=== PATIENT | female | born 1990 | race Caucasian/White ===

== ENCOUNTER 2017-06-03 10:55 | Emergency (ER) | payer OTHER, SELFPAY ==
[2017-06-03 10:57] VITALS: BP 132/83; PULSE 97; RESP 17; TEMP 37.3; O2SAT 99; BMI 31.8
[2017-06-03 11:32] LABS: Mucous, Urine 0 SEEN /hpf (<or=2+)
[2017-06-03 11:35] VITALS: BP 115/61; BP 119/54; BP 125/70; PULSE 72; PULSE 92; PULSE 98
[2017-06-03 11:35] LABS: Color, Urine Yellow (Yellow); Glucose, Dipstick Normal (Normal); Ketone-Dipstick Negative (Negative); Leukocyte Esterase-Dipstick 25 /ul (Negative); Nitrite-Dipstick Negative (Negative); Occult Blood-Urine 10 /ul (Negative); Protein-Dipstick 100 mg/dl (Negative); Urine Bilirubin Dipstick Negative (Negative); Urine Clarity Clear (Clear); Urine Urobilinogen Normal (Normal); Urine pH 6.5 (5.0 - 8.0)
[2017-06-03 11:45] LABS: Red Blood Cells-Urine 0-5 SEEN /hpf (0-5); Squamous Epithelial Cells - UA 0-5 SEEN /hpf (5-10); White Blood Cells 5-10 SEEN /hpf (0-5)
[2017-06-03 11:47] LABS: Bacteria 3+ /hpf (None Seen)
--- NOTE | 2017-06-03 12:13 | ED.DCSUM_ITS ---
- ER Visit Summary Date of Service: 06/03/17 Chief Complaint: [Anxiety] History of Present Illness: The patient is a 27 F [presents to the emergency department with which she thinks may have been an anxiety attack this morning. Patient states that she was sitting and getting ready for work when she started to feel like she was in a tight space and had a little bit of blurred vision that lasted less than a minute. Patient states that she is 31 weeks with her first . Patient is still feeling the baby move normally. Patient denies any urinary symptoms. She denies recent illness. Her symptoms have resolved but her mom convinced her to come in and get evaluated because of the blurred vision. Vision has had some similar episodes in the past but really does not take any anxiety medication. Denies any chest pain or shortness of breath at this time.] Physical Examination: [HEENT-PERRLA, EOMI. Cranial nerves II through XII grossly intact. TMs clear. Mucous membranes moist. No adenopathy. Cardiovascular-regular rate and rhythm without murmur or ectopy Lungs-clear to auscultation, chest wall stable without crepitus or subcu emphysema Abdomen-normoactive bowel sounds, soft, nontender, no rebound or rigidity, no peritoneal signs. Extremities-intact ?4, normal range of motion, normal pulses, atraumatic] Test Results: [Urinalysis obtained showed 25 leukocyte esterase 5-10 WBCs and + 3 bacteria. Orthostatic vital signs were negative. heart tones were 145. 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 It may contain incorrect words, spelling, and punctuation that were not noted in review of the chart prior to signing ED Disposition - Plan for ED Patient: Chief Complaint: Anxiety Referrals: Yadiel Vasques III, MD [Primary Care Provider] -
--- NOTE | 2017-06-03 12:14 | ED.DEP ---
ED Disposition - Plan for ED Patient: Chief Complaint: Anxiety Instructions: ED Panic Attack, ED UTI Cystitis Female Prescriptions: Nitrofurantoin Macrocrystals [Macrobid] 100 mg PO Q12 #13 cap Referrals: Emilee Floyd [STAFF PHYSICIAN] - 3-5 Days
[2017-06-03 12:29] VITALS: PULSE 75; RESP 16; O2SAT 96
[2017-06-03] MEDS: Nitrofurantoin Macrocrystals 100 MG Capsule PO (12:30)
== END 2017-06-03 12:32 | disposition home or self-care (01) ==
PROVIDERS: Emergency Provider Emergency Medicine; Family Provider Family Medicine; PCP Family Medicine
DX: O99.343 Other mental disorders complicating pregnancy, third trimester (principal); F41.9 Anxiety disorder, unspecified; O23.43 Unspecified infection of urinary tract in pregnancy, third trimester; B96.89 Other specified bacterial agents as the cause of diseases classified elsewhere; Z3A.31 31 weeks gestation of pregnancy
CPT/HCPCS: 81001; 87086; 87088; 99283

== ENCOUNTER 2017-07-15 10:58 | Outpatient (CLI) | payer OTHER, SELFPAY ==
[2017-07-15 11:03] VITALS: BMI 33.5
[2017-07-15 11:51] LABS: Protein, Urine (Random) 48.9 mg/dL (<11.9); Protein:Creat Ratio 385 mg/g CRE (0-200)
[2017-07-15 12:04] LABS: Hematocrit 39.3 % (37-47); Hemoglobin 12.8 g/dl (12.0-15.0); Mean Corp Hgb Conc 32.6 g/gl (32-36); Mean Corpuscular Hgb 27.9 pg (27.0-32.0); Mean Corpuscular Volume 85.6 fL (81-99); Platelet Count 284 K/mm3 (150-450); RBC Distribution Width SD 46.1 fl (35.1-43.9); Red Blood Count 4.59 M/mm3 (4.2-5.4); Scan Indicated on CBC? Y/N NO; White Blood Count 12.2 K/mm3 (4.4-11.0)
[2017-07-15 12:19] LABS: AST(SGOT) 17 U/L (15-37); Alanine Aminotransfer ALT/SGPT 18 U/L (13-56); Creatinine, Serum 0.48 mg/dL (0.55-1.02); EST Glomerular Filtration Rate 168 mL/min (>60); Est Glom Filt Rate - Afr Amer 204 mL/min (>60); Estimated Creatinine Clearance 148.21 ml/min; Uric Acid 4.4 mg/dL (2.6-6.0)
[2017-07-15 12:57] LABS: Prothrombin Time (Protime)PT. 13.1 SECONDS (11.7-14.9)
[2017-07-15 12:58] LABS: Partial Thromboplast Time 28.1 Seconds (24.1-36.2)
--- NOTE | 2017-07-15 13:31 | OB.TRI.NOTE ---
History of Present Illness Date of Service: 07/15/17 Was patient seen by the physician?: No Reason For Visit: R/O PIH Home Medications Medication Instructions Recorded Pnv No.122/Iron/Folic Acid 1 each PO DAILY 06/03/17 [ Multi Tablet] Allergies azithromycin Allergy (Verified 06/03/17 10:57) Hives Penicillins Allergy (Verified 06/03/17 10:57) Hives Sulfa (Sulfonamide Antibiotics) Allergy (Verified 06/03/17 10:57) Hives NST - FHR Rate Baby A Baseline: 135 Variability:: Moderate Accelerations:: 15 x 15 Decelerations:: Variable NST Reactive:: Yes Uterine Activity:: irritability Impression/Plan Reactive NST for elevated BP in BP's & labs normal except for mildly elevated urine protein. No evidence preeclampsia
== END 2017-07-15 13:30 | disposition home or self-care (01) ==
LOC: WPOUT 11:01 → WP 11:01
PROVIDERS: Family Provider Family Medicine; PCP Family Medicine; Visit Provider Obstetrics & Gynecology
DX: O13.9 Gestational [pregnancy-induced] hypertension without significant proteinuria, unspecified trimester (principal); Z3A.00 Weeks of gestation of pregnancy not specified
CPT/HCPCS: 36415; 59025; 59050; 82565; 82570; 84156; 84450; 84460; 84550; 85027; 85610; 85730; 99218; G0378

== ENCOUNTER 2017-07-19 16:50 | Inpatient (IN) | payer OTHER, SELFPAY ==
--- NOTE | 2017-07-19 17:25 | PCM.HP.OB ---
- Problem List (1) Gestational hypertension Status: Acute (2) GBS bacteriuria Status: Acute (3) Anxiety Status: Acute (4) Status: Acute History Date of Admission: 07/19/17 Final DENISE: 08/05/17 Final DENISE Source: LMP Gestational age: 37 Weeks and 4 Days History of this : 27 year old female at 37w4d by LMP, confirmed by 1st trimester U/S. Presented to office today for routine PN visit. BP in office elevated in office and decision made for IOL due to Gestational HTN. Patient denied any headache, scotoma, chest pain, shortness of breath, or RUQ pain. Allergies azithromycin Allergy (Verified 06/03/17 10:57) Hives Penicillins Allergy (Verified 06/03/17 10:57) Hives Sulfa (Sulfonamide Antibiotics) Allergy (Verified 06/03/17 10:57) Hives Smoking Status: Never smoker Alcohol: None Drug Use: none Number of Fetus(es): 1 Review of Systems Constitutional: Denies: Chills, Fever, Weight Change Eyes: Denies: Blurred vision, Vision Change HEENT: Denies: Head Aches Cardiovascular: Denies: Chest Pain, Palpitations Respiratory: Denies: Cough, Shortness of breath at rest, Sputum production Gastrointestinal: Denies: Abdominal Pain, Nausea, Vomiting Physical Exam Vitals: Labs: RPR negative HIV negative GBS positive in urine Rubella immune HBsAG negative GC/CT negative A positive, antibody screen negative. General: Alert Cardiovascular: Regular rate, Regular Rhythm, No murmurs Lungs: Clear to auscultation Abdomen: Bowel Sounds Present, Gravid Extremities:: No edema, Deep tendon reflexes - +2/4 bilateral patellar. Clonus negative bilaterally Presentation: Cephalic Cervix Dilation (cm): 0 - Per Marleni Young exam in office today Station: -3 Effacement (%): 30 Assessment/Plan Active and Suspected Problems Gestational hypertension (Acute) GBS bacteriuria (Acute) Anxiety (Acute) (Acute) A: 27 year old at 37w4d for induction of labor Gestational Hypertension P: 1) Admit to L&D for routine orders. Planning epidural for pain management. 2) Cytotec cervical ripening and then progress to Pitocin if needed per protocol 3) BP stable upon admission. Will initiate HTN protocol if needed. 4) GBS positive, penicillin allergic with Hives. Will do Vancomycin for GBS prophylaxis. To start once patient is in active labor. 5) collaborative physician and consulted on patient plan of care. Gem Monsalve CNM
[2017-07-19 17:38] VITALS: BMI 33.3
[2017-07-19 18:27] LABS: Hematocrit 40.3 % (37-47); Hemoglobin 13.1 g/dl (12.0-15.0); Mean Corp Hgb Conc 32.5 g/gl (32-36); Mean Corpuscular Hgb 27.8 pg (27.0-32.0); Mean Corpuscular Volume 85.4 fL (81-99); Platelet Count 295 K/mm3 (150-450); RBC Distribution Width CV 14.7 % (11.6-14.6); RBC Distribution Width SD 45.8 fl (35.1-43.9); Red Blood Count 4.72 M/mm3 (4.2-5.4); White Blood Count 14.5 K/mm3 (4.4-11.0)
[2017-07-19 18:46] LABS: AST(SGOT) 14 U/L (15-37); Alanine Aminotransfer ALT/SGPT 16 U/L (13-56); Creatinine, Serum 0.54 mg/dL (0.55-1.02); EST Glomerular Filtration Rate 147 mL/min (>60); Est Glom Filt Rate - Afr Amer 178 mL/min (>60); Estimated Creatinine Clearance 131.74 ml/min; Uric Acid 4.1 mg/dL (2.6-6.0)
[2017-07-19 18:49] LABS: Prothrombin Time (Protime)PT. 13.5 SECONDS (11.7-14.9)
[2017-07-19 18:50] LABS: Partial Thromboplast Time 30.4 Seconds (24.1-36.2)
[2017-07-19 18:56] LABS: Scan Indicated on CBC? Y/N NO
[2017-07-19] MEDS: miSOPROStol 25 MCG TABLET VAGINAL ×2 (19:53→23:45)
[2017-07-19 20:18] LABS: Protein, Urine (Random) 28.4 mg/dL (<11.9); Protein:Creat Ratio 243 mg/g CRE (0-200)
[2017-07-19] MEDS: Acetaminophen 325 MG Tablet PO (23:07)
[2017-07-19] MEDS: 0.9% Saline Lock 10 ML Syringe IV (23:08)
[2017-07-20] MEDS: miSOPROStol 25 MCG TABLET VAGINAL (04:01)
--- NOTE | 2017-07-20 08:15 | PCM.PN.OB ---
Patient Problems: Active and Suspected Problems Gestational hypertension (Acute) GBS bacteriuria (Acute) Anxiety (Acute) (Acute) Subjective: Resting up in chair. Slept throughout the night. Some back pain during contractions. 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 RBC Cancelled 4.72 Hgb Cancelled 13.1 Hct Cancelled 40.3 MCV Cancelled 85.4 MCH Cancelled 27.8 MCHC Cancelled 32.5 RDW Cancelled 14.7 H RDW Differential Cancelled 45.8 H Plt Count Cancelled 295 MPV Cancelled 12.0 Diff Path Review Cancelled STREET CLEANING EQUIPMENT OPERATOR PT INR APTT Creatinine Estim Creat Clear Calc Est GFR (MDRD) Af Amer Est GFR (MDRD) Non-Af Uric Acid AST ALT U Random Total Protein Urine Creatinine Protein/Creatinin Ratio Blood Type A POSITIVE Antibody Screen NEGATIVE 07/19/17 07/19/17 07/19/17 17:50 17:50 19:50 WBC Corrected WBC RBC Hgb Hct MCV MCH MCHC RDW RDW Differential Plt Count MPV Diff Path Review PT 13.5 INR 1.0 APTT 30.4 Creatinine 0.54 L Estim Creat Clear Calc 131.74 Est GFR (MDRD) Af Amer 178 Est GFR (MDRD) Non-Af 147 Uric Acid 4.1 AST 14 L ALT 16 U Random Total Protein 28.4 H Urine Creatinine 117.00 Protein/Creatinin Ratio 243 H Blood Type Antibody Screen Medical Necessity - Tobacco Use Smoking Status: Never smoker Assessment/Plan Active and Suspected Problems Gestational hypertension (Acute) GBS bacteriuria (Acute) Anxiety (Acute) (Acute) A: Induction of Labor, cervical ripening Category 1 FHT P: 1) Continue with Cytotec cervical ripening. Anticipate starting Pitocin once cervical change 2) To eat breakfast and get shower then insert next dose of Cytotec 3) notified at this time.
--- NOTE | 2017-07-20 08:19 | PN.OBGYN_ITS ---
Patient Problems: Active and Suspected Problems Gestational hypertension (Acute) GBS bacteriuria (Acute) Anxiety (Acute) (Acute) Subjective: Resting up in chair. Slept throughout the night. Some back pain during contractions. 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 RBC Cancelled 4.72 Hgb Cancelled 13.1 Hct Cancelled 40.3 MCV Cancelled 85.4 MCH Cancelled 27.8 MCHC Cancelled 32.5 RDW Cancelled 14.7 H RDW Differential Cancelled 45.8 H Plt Count Cancelled 295 MPV Cancelled 12.0 Diff Path Review Cancelled SWITCHBOARD OPERATOR ASSISTANT PT INR APTT Creatinine Estim Creat Clear Calc Est GFR (MDRD) Af Amer Est GFR (MDRD) Non-Af Uric Acid AST ALT U Random Total Protein Urine Creatinine Protein/Creatinin Ratio Blood Type A POSITIVE Antibody Screen NEGATIVE 07/19/17 07/19/17 07/19/17 17:50 17:50 19:50 WBC Corrected WBC RBC Hgb Hct MCV MCH MCHC RDW RDW Differential Plt Count MPV Diff Path Review PT 13.5 INR 1.0 APTT 30.4 Creatinine 0.54 L Estim Creat Clear Calc 131.74 Est GFR (MDRD) Af Amer 178 Est GFR (MDRD) Non-Af 147 Uric Acid 4.1 AST 14 L ALT 16 U Random Total Protein 28.4 H Urine Creatinine 117.00 Protein/Creatinin Ratio 243 H Blood Type Antibody Screen Medical Necessity - Tobacco Use Smoking Status: Never smoker Assessment/Plan Active and Suspected Problems Gestational hypertension (Acute) GBS bacteriuria (Acute) Anxiety (Acute) (Acute) A: Induction of Labor, cervical ripening Category 1 FHT P: 1) Continue with Cytotec cervical ripening. Anticipate starting Pitocin once cervical change 2) To eat breakfast and get shower then insert next dose of Cytotec 3) notified at this time.
--- NOTE | 2017-07-20 09:04 | PCM.PN.BLA ---
Progress Note Denies VILLALOBOS, visual changes or epigastric pain. FHTs category 1. BP stable cervix .5/50/-3, medium consistency, posterior Swift placed over stylette in usual sterile fashion and inflated to 30 cc. Placement over internal os confirmed Initiate pitocin
[2017-07-20] MEDS: 0.9% Saline Lock 10 ML Syringe IV (09:23)
[2017-07-20] MEDS: Lactated Ringers 1,000 ML 50 ML IV ×4 (09:24→23:38)
[2017-07-20] MEDS: Oxytocin 30 units/NS 500 ml 30 UNITS/500 ML IV.SOLN IV (10:05)
[2017-07-20] MEDS: fentaNYL-bupivacaine (epidural) 100 ML BAG EPIDURAL ×2 (14:07→18:18)
--- NOTE | 2017-07-20 16:35 | PCM.PN.BLA ---
Progress Note PAtient comfortable wit epidural AROM clear fluid & IUPC placed cvx - 4/80/-3 fhts 135 with mod variability, accels, occ variables tocos Q3 min A&P: cont pit induction
--- NOTE | 2017-07-20 23:27 | PCM.PN.BLA ---
Progress Note Patient feeling some rectal pressure cvx 5/90/-1 fhts 140 with mod variability, accels, occ late decel - overall reassuring tocos Q1-3 minutes A&P: continue pitocin induction FSE placed on maternal cervix was easily removed. The other FSE was confirmed to be correctly placed on the head.
[2017-07-20] MEDS: Ondansetron 4 MG/2 ML Vial IV (23:37)
[2017-07-21] MEDS: Lactated Ringers 1,000 ML 50 ML IV (05:36)
[2017-07-21] MEDS: fentaNYL-bupivacaine (epidural) 100 ML BAG EPIDURAL (05:37)
--- NOTE | 2017-07-21 06:59 | PCM.OB.VAG ---
Vaginal Delivery Maternal Presentation: Medically Indicated Induction Method of Induction: Pitocin, Swift Bulb, Amniotomy, Cytotec Medical Reason for Induction: Gestational Hypertension Amniotic Membrane Rupture Type: Artificial Amniotic Fluid Description: Clear Final DENISE: 08/05/17 Gestational age: 37 Weeks and 6 Days Date of Procedure: 07/21/17 Pre-Operative Diagnosis: Gestational hypertension Post-Operative Diagnosis: Gestational hypertension Surgery/ Procedure Performed: Spontaneous Vaginal Delivery Type of Anesthesia: Epidural Description of Procedure: Patient prepped & draped when +3 with pushing. Patient was exhausted & decreased fhts noted thus ritgen maneuver used to aid in delivery of the head. After the head delivered the shoulders spontaneously followed. Body delivered with the next push. Infant placed on maternal abdomen where 3vc clamped & cut. RN present & took websphere commerce developer to warmer and websphere commerce developer called. Placenta delivered with gentle traction. Good uterine tone obtained. Presentation: Vertex - direct OA Placental Delivery Description: Expressed Placenta Disposition: [facility] Cord Vessel Description: 3 Vessels Cord Gases drawn per routine: ABG, VBG Cord Entanglement: Around neck x 1, loose Drain: Swift to straight drain Estimated Blood Loss: 300ml A gender: Male (1 minute): 3 (5 minute): 9 Episiotomy Description: None Laceration: None Medications given after delivery: IV Pitocin Complications: None
[2017-07-21] MEDS: Oxytocin 30 units/NS 500 ml 30 UNITS/500 ML IV.SOLN 334 UNITS IV (08:00)
[2017-07-21] MEDS: Oxytocin 30 units/NS 500 ml 30 UNITS/500 ML IV.SOLN 167 UNITS IV (08:30)
[2017-07-21] MEDS: Ibuprofen 600 MG Tablet PO (10:39)
--- NOTE | 2017-07-21 11:19 | NURSING ---
1100 pt up to void gait steady
[2017-07-21 12:00] VITALS: BP 119/59; PULSE 78; RESP 16; TEMP 37.1; O2SAT 98
[2017-07-21 15:30] VITALS: BP 134/78; PULSE 74; RESP 16; TEMP 36.9; O2SAT 99
[2017-07-21 20:25] VITALS: BP 130/86; PULSE 97; RESP 18; TEMP 36.7; O2SAT 99
[2017-07-21 23:25] VITALS: BP 136/81; PULSE 74; RESP 17; TEMP 36.6; O2SAT 98
[2017-07-22 04:00] VITALS: PULSE 77; RESP 16; TEMP 37.1
[2017-07-22 08:30] VITALS: BP 134/74; PULSE 89; RESP 16; TEMP 37.1
--- NOTE | 2017-07-22 08:55 | PCM.PN.OB ---
Patient Problems: Active and Suspected Problems Gestational hypertension (Acute) GBS bacteriuria (Acute) Anxiety (Acute) (Acute) Subjective: No complaints - Physical Exam General: Alert, Oriented x3 Abdomen: Soft, Non Tender, Non-Distended - ff mid & below umb Extremities: No Calf Tenderness Vital Signs Temp Pulse Resp BP Pulse Ox 98.7 F 77 16 136/81 H 98 07/22/17 04:00 07/22/17 04:00 07/22/17 04:00 07/21/17 23:25 07/21/17 23:25 Oxygen Delivery Method Room Air Weight: 188 lb Body Mass Index (BMI) 33.3 Intake and Output for Last 24 Hours 07/20/17 07/21/17 07/22/17 23:59 23:59 23:59 Intake Total 1800 / 1800 350 / 350 Output Total 150 / 150 600 / 600 Balance 1650 / 1650 -250 / -250 Medical Necessity - Tobacco Use Smoking Status: Never smoker Assessment/Plan Active and Suspected Problems Gestational hypertension (Acute) GBS bacteriuria (Acute) Anxiety (Acute) (Acute) PPD#1 ROutine care Gestational hypertension - BP's normal
[2017-07-22 12:00] VITALS: BP 137/80; PULSE 80; RESP 18; TEMP 36.2
[2017-07-22] MEDS: Ibuprofen 600 MG Tablet PO (12:24)
[2017-07-22 16:00] VITALS: BP 133/89; PULSE 82; RESP 18; TEMP 37.2
[2017-07-22 20:15] VITALS: BP 133/77; PULSE 76; RESP 18; TEMP 36.6
[2017-07-23] VITALS (10 sets, daily range): BP systolic 124–155; BP diastolic 77–93; PULSE 72–83; RESP 16–18; TEMP 36.4–36.9; O2SAT 97–99
--- NOTE | 2017-07-23 05:34 | NURSING ---
bp checked while pt lying down after sleeping 155/89 wich is up over last bp denies any pain, denies seeing spots, and blurred vision.
--- NOTE | 2017-07-23 08:34 | PCM.PN.OB ---
Patient Problems: Active and Suspected Problems Gestational hypertension (Acute) GBS bacteriuria (Acute) Anxiety (Acute) (Acute) Subjective: NO headache or blurry vision - Physical Exam General: Alert, Oriented x3 Abdomen: Soft, Non Tender, Non-Distended - ff mid & below umb Extremities: No Calf Tenderness - 2+ edema bilaterally Vital Signs Temp Pulse Resp BP Pulse Ox 97.6 F L 80 18 143/91 H 99 07/23/17 07:45 07/23/17 07:45 07/23/17 07:45 07/23/17 07:45 07/23/17 07:45 Oxygen Delivery Method Room Air Weight: 188 lb Body Mass Index (BMI) 33.3 Intake and Output for Last 24 Hours 07/21/17 07/22/17 07/23/17 23:59 23:59 23:59 Intake Total 350 / 350 Output Total 600 / 600 Balance -250 / -250 Medical Necessity - Tobacco Use Smoking Status: Never smoker Assessment/Plan Active and Suspected Problems Gestational hypertension (Acute) GBS bacteriuria (Acute) Anxiety (Acute) (Acute) PPD#2 Gestational hypertension - BP's increasing. Will give lasix as patient with edema & some increased fluid. Start labetalol 200mg bid. Check repeat preeclampsia labs. Routine care
[2017-07-23] MEDS: Labetalol 200 MG Tablet PO (09:38)
[2017-07-23] MEDS: Furosemide 20 MG Tablet PO (09:38)
--- NOTE | 2017-07-23 09:46 | NURSING ---
Pt and instructed on signs and symptoms to look for at home relating to elevated blood pressure. Both verbalizing understanding. Pre-eclampsia handout given and pt denies questions.
[2017-07-23 09:50] LABS: Hematocrit 38.2 % (37-47); Hemoglobin 12.4 g/dl (12.0-15.0); Mean Corp Hgb Conc 32.5 g/gl (32-36); Mean Corpuscular Hgb 27.9 pg (27.0-32.0); Mean Platelet Vol. 11.7 fl (6.2-12.0); Platelet Count 295 K/mm3 (150-450); RBC Distribution Width CV 15.1 % (11.6-14.6); RBC Distribution Width SD 47.3 fl (35.1-43.9); Red Blood Count 4.44 M/mm3 (4.2-5.4); Scan Indicated on CBC? Y/N NO; White Blood Count 16.2 K/mm3 (4.4-11.0)
[2017-07-23 09:58] LABS: Partial Thromboplast Time 28.5 Seconds (24.1-36.2); Prothrombin Time (Protime)PT. 12.7 SECONDS (11.7-14.9)
[2017-07-23 10:00] LABS: AST(SGOT) 22 U/L (15-37); Alanine Aminotransfer ALT/SGPT 22 U/L (13-56); Creatinine, Serum 0.67 mg/dL (0.55-1.02); EST Glomerular Filtration Rate 114 mL/min (>60); Est Glom Filt Rate - Afr Amer 138 mL/min (>60); Estimated Creatinine Clearance 106.18 ml/min; Uric Acid 5.2 mg/dL (2.6-6.0)
--- NOTE | 2017-07-23 15:48 | PCM.PN.BLA ---
Progress Note S: Patient denies complaints O: AF, BP's reviewed DTRs 2+ A&P: PPD#2 with gestational hypertension BP's still mildly elevated. Will increase labetalol to 300mg tid. Repeat labs normal today. Observe patient overnight due to elevated blood pressures.
[2017-07-23] MEDS: Labetalol 200 MG Tablet 300 MG PO ×2 (16:43→22:03)
[2017-07-23] MEDS: Senna/Docusate Sodium 1 Tablet PO (22:04)
[2017-07-24 04:00] VITALS: BP 145/86; PULSE 77; RESP 18; TEMP 36.8
[2017-07-24] MEDS: Labetalol 200 MG Tablet 300 MG PO (06:23)
--- NOTE | 2017-07-24 08:29 | PCM.DCVAG ---
Discharge Diet: No Restrictions Discharge Activity: May Not Drive, May Shower May resume sexual activity in: 4-6 weeks Weight Bearing Status: Weight bearing as tolerated Instructions: What Is High Blood Pressure?, Discharge Instructions for High Blood Pressure (Hypertension) Additional Instructions: If you experience any of the following, contact your healthcare provider. Bleeding that soaks a pad every hour for 2 hours Fever 100.4 or higher Unrelieved incision or abdominal pain Swelling, redness, discharge or bleeding from your incision or episiotomy site Your incision begins to separate Problems urinating (including inability to urinate or burning while urinating). Visual changes Severe headache Flu-like symptoms Pain or redness in one of both of your breasts Pain, warmth, tenderness or swelling in your legs, especially the calf area Frequent nausea and vomiting Symptoms of depression or anxiety If you experience any of the following, call 911 or go to the nearest Emergency Room. Chest pain Problems breathing Seizure activity Partial or complete paralysis of a body part, slurred speech, weakness or drooping of the face, or a sudden inability to walk or hold your balance FOLLOW UP WEDNESDAY FOR A BLOOD PRESSURE CHECK. Allergies/Adverse Reactions: Allergies azithromycin Allergy (Verified 06/03/17 10:57) Hives Penicillins Allergy (Verified 06/03/17 10:57) Hives Sulfa (Sulfonamide Antibiotics) Allergy (Verified 06/03/17 10:57) Hives Medications to take at Discharge Pnv No.122/Iron/Folic Acid [ Multi Tablet] 1 each PO DAILY 06/03/17 Labetalol [Trandate (Beta [place])] 300 mg PO TID #90 tab 07/24/17 The following prescriptions were given: Labetalol [Trandate (Beta [place])] 300 mg PO TID #90 tab Primary Care Physician: Yadiel Vasques III, MD [Primary Care Provider] -
--- NOTE | 2017-07-24 08:30 | DCINST_ITS ---
Discharge Diet: No Restrictions Discharge Activity: May Not Drive, May Shower May resume sexual activity in: 4-6 weeks Weight Bearing Status: Weight bearing as tolerated Instructions: What Is High Blood Pressure?, Discharge Instructions for High Blood Pressure (Hypertension) Additional Instructions: If you experience any of the following, contact your healthcare provider. * Bleeding that soaks a pad every hour for 2 hours * Fever 100.4 or higher * Unrelieved incision or abdominal pain * Swelling, redness, discharge or bleeding from your incision or episiotomy site * Your incision begins to separate * Problems urinating (including inability to urinate or burning while urinating) . * Visual changes * Severe headache * Flu-like symptoms * Pain or redness in one of both of your breasts * Pain, warmth, tenderness or swelling in your legs, especially the calf area * Frequent nausea and vomiting * Symptoms of depression or anxiety If you experience any of the following, call 911 or go to the nearest Emergency Room. * Chest pain * Problems breathing * Seizure activity * Partial or complete paralysis of a body part, slurred speech, weakness or drooping of the face, or a sudden inability to walk or hold your balance * * * * * * FOLLOW UP WEDNESDAY FOR A BLOOD PRESSURE CHECK. Allergies/Adverse Reactions: Allergies azithromycin Allergy (Verified 06/03/17 10:57) Hives Penicillins Allergy (Verified 06/03/17 10:57) Hives Sulfa (Sulfonamide Antibiotics) Allergy (Verified 06/03/17 10:57) Hives Medications to take at Discharge Pnv No.122/Iron/Folic Acid [ Multi Tablet] 1 each PO DAILY 06/03/17 Labetalol [Trandate (Beta [place])] 300 mg PO TID #90 tab 07/24/17 The following prescriptions were given: Labetalol [Trandate (Beta [place])] 300 mg PO TID #90 tab Primary Care Physician: Yadiel Vasques III, MD [Primary Care Provider] -
--- NOTE | 2017-07-24 08:31 | PCM.PN.OB ---
Patient Problems: Active and Suspected Problems Gestational hypertension (Acute) GBS bacteriuria (Acute) Anxiety (Acute) (Acute) Subjective: Denies complaints. No headache or blurry vision. - Physical Exam General: Alert, Oriented x3 Abdomen: Soft, Non Tender, Non-Distended - ff mid & below umb Extremities: No Calf Tenderness - 1+ edema bilaterally Vital Signs Temp Pulse Resp BP Pulse Ox 98.2 F 77 18 145/86 H 97 07/24/17 04:00 07/24/17 04:00 07/24/17 04:00 07/24/17 04:00 07/23/17 20:04 Oxygen Delivery Method Room Air Weight: 188 lb Body Mass Index (BMI) 33.3 Laboratory Tests Past 24 Hrs 07/23/17 07/23/17 07/23/17 09:40 09:40 09:40 WBC 16.2 H RBC 4.44 Hgb 12.4 Hct 38.2 MCV 86.0 MCH 27.9 MCHC 32.5 RDW 15.1 H RDW Differential 47.3 H Plt Count 295 MPV 11.7 PT 12.7 INR 1.0 APTT 28.5 Creatinine 0.67 Estim Creat Clear Calc 106.18 Est GFR (MDRD) Af Amer 138 Est GFR (MDRD) Non-Af 114 Uric Acid 5.2 AST 22 ALT 22 Medical Necessity - Tobacco Use Smoking Status: Never smoker Assessment/Plan Active and Suspected Problems Gestational hypertension (Acute) GBS bacteriuria (Acute) Anxiety (Acute) (Acute) PPD#3 Gestational hypertension - BP's normal to systolic mildly elevated, continue labetalol. reviewed signs preE with patient & her extensively. Call with any concerns. F/u Wednesday in office D/c home
[2017-07-24 10:00] VITALS: BP 143/87; PULSE 72; RESP 16; TEMP 37.2
--- NOTE | 2017-07-24 12:23 | NURSING ---
1135 Patient states she is ready to go home and wants to leave [facility]. States she is able to care for herself and her baby. Discharged to home in wheelchair with infant to car.
== END 2017-07-24 11:35 | disposition home or self-care (01) | DRG 775 ==
PROVIDERS: Obstetrics & Gynecology; Admitting Provider Obstetrics & Gynecology; Family Provider Family Medicine; PCP Family Medicine; Visit Provider Obstetrics & Gynecology
DX: O13.3 Gestational [pregnancy-induced] hypertension without significant proteinuria, third trimester (principal); O69.81X0 Labor and delivery complicated by cord around neck, without compression, not applicable or unspecified; O99.820 Streptococcus B carrier state complicating pregnancy; O99.343 Other mental disorders complicating pregnancy, third trimester; F41.9 Anxiety disorder, unspecified; Z3A.37 37 weeks gestation of pregnancy; Z37.0 Single live birth
CPT/HCPCS: 59025; 59050; 82565; 82570; 84156; 84450; 84460; 84550; 85027; 85610; 85730; 86850; 86900; 99218; J7050; J7120; A4216; G0378; J2405

== ENCOUNTER 2021-01-23 21:04 | Emergency (ER) | payer OTHER, SELFPAY ==
[2021-01-23 21:04] VITALS: BP 184/109; PULSE 85; RESP 16; TEMP 36.6; O2SAT 97; BMI 33.8
--- NOTE | 2021-01-23 21:22 | EKG12_ITS ---
Test Reason : HTN Blood Pressure : / mmHG Vent. Rate : 082 BPM Atrial Rate : 082 BPM P-R Int : 140 ms QRS Dur : 082 ms QT Int : 370 ms P-R-T Axes : 030 031 013 degrees QTc Int : 432 ms Normal sinus rhythm Normal ECG Confirmed by LUCIAN ROMANO, MARQUISE ([id number]), production editor HUYEN DOVER ([id number]) on 01/28/2021 8:41:52 AM Referred By: CARLOS Confirmed By:MARQUISE EPSTEIN MD
--- NOTE | 2021-01-23 21:23 | EDS_ITS ---
HPI History of Present Illness Chief Complaint: Hypertension Onset/Context/Timing Onset: Today (most of the day) Timing: Continuous Quality - All: constant and pressure Location: midchest w/o radiation Current Severity: Moderate Maximum Severity: Moderate Worsened by: nothing. nonpleuritic, nonexertional. Relieved by: nothing Associated Symptoms Associated Symptoms: anxiety Narrative Narrative: Patient has been having chest pain off and on, it has been there most of the day today, out of concern of this she checked her blood pressure and it was in the 140s which is why she became concerned. Her diastolic was 101. Here her pressure is much higher than this. Recent Illness/Hospitalization: No PFSH PFSH Medical History Hypertension Home Medications [id number] [ Multi] 1 ea PO DAILY 06/03/17 [History Last Taken 07/19/17 10:30] labetalol 300 mg PO TID #90 tab 07/24/17 [Rx Last Taken Unknown] hydroxyzine pamoate 50 mg PO TID PRN PRN #20 capsule 01/23/21 [Rx Last Taken Unknown] Allergy/AdvReac Type Severity Reaction Status Date / Time azithromycin Allergy Hives Verified 01/23/21 21:06 Penicillins Allergy Hives Verified 01/23/21 21:06 Sulfa (Sulfonamide Allergy Hives Verified 01/23/21 21:06 Antibiotics) Social History (Updated 01/23/21 @ 21:[address] Roderick Melgoza MD) Smoking Status: Never smoker substance use type: does not use ROS ROS ED Constitutional Constitutional ED: Denies chills or fever(s) Eyes Eyes: Denies change in vision or diplopia ENT ENT ED: Denies rhinorrhea or sore throat Cardiovascular Cardiovascular: Reports chest pain and other Details: No arm, back, jaw, neck pain ; Denies palpitations Respiratory/Chest Respiratory/Chest: Denies cough or dyspnea Gastrointestinal Gastrointestinal: Denies abdominal pain, diarrhea, nausea or vomiting Genitourinary Genitourinary ED: Denies dysuria or hematuria Musculoskeletal Musculoskeletal: Denies back pain or neck pain Integumentary Denies abscess or rash Neurologic Neurologic: Denies headache(s), paresthesias or weakness Psychiatric Psychiatric: Reports anxiety; Denies suicidal thoughts EXAM Physical Exam Const Vital Signs: 01/23/21 21:04 01/23/21 21:38 01/23/21 21:55 Temperature 97.9 F Temperature Source Temporal Pulse Rate 85 Respiratory Rate 16 Respiratory Effort Normal Non-Labored Respiratory Pattern Normal Blood Pressure 184/109 H Blood Pressure Mean 134 Pulse Ox 97 98 Oxygen Delivery Method Room Air Room Air Positive well nourished and well developed General Appearance ED: well developed and NAD HEENT Reports moist mucous membranes normocephalic and atraumatic Eyes PERRL and EOMs intact bilaterally Neck full ROM and supple Resp normal respiratory effort and clear to auscultation bilaterally Cardio regular rate, regular rhythm and no murmurs GI non-tender and non-distended Auscultation: normoactive bowel sounds Palpation: soft Back/Spine no CVA tenderness General Back: other FROM Extremity normal to inspection General Extremety ED: Negative for edema, pulses abnormal or tenderness General Extremity: Negative for edema or pulses abnormal Neuro oriented x3, CN's II-XII intact bilaterally and no sensory deficits noted Sensorium / Orientation: awake and alert Motor Exam: strength 5/5 throughout Skin no rashes or lesions noted and no wounds MDM MDM MDM Narrative Medical decision making narrative: Work-up is negative. Patient is reassured this is likely nonlife-threatening etiology of her chest discomfort. With observation her blood pressure came down to 138/101. I do not think that needs to be emergently treated. 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 She has been on nothing ever since. She did not have high blood pressures subsequently after delivery. I gave her a GI cocktail here to see if it would help with her discomfort, it only helped a little, we discussed possible etiologies, possibility of GI etiologies, I think she can try at home before following up with her doctor. She and her mother are asking for something for anxiety, she was amenable to trying some Vistaril prior to discharge. Lab Data Attestation: I reviewed the patient's lab results. Labs: Laboratory Results - last 24 hr 01/23/21 01/23/21 21:30 21:30 WBC 13.5 H RBC 5.21 Hgb 13.6 Hct 42.1 MCV 80.8 L MCH 26.1 L MCHC 32.3 RDW Std Deviation 40.4 RDW Coeff of Tony 13.7 Plt Count 519 H MPV 10.3 Immature Gran % (Auto) 0.100 Neut % (Auto) 60.6 Lymph % (Auto) 30.4 [place] % (Auto) 4.3 Eos % (Auto) 3.9 Baso % (Auto) 0.7 Absolute Neuts (auto) 8.2 H Absolute Lymphs (auto) 4.09 Nucleated RBC % 0 Sodium 139 Potassium 3.6 Chloride 105 Carbon Dioxide 27.0 Anion Gap 7 BUN 12 Creatinine 0.71 Estim Creat Clear Calc 93.30 Est GFR (MDRD) Af Amer 125 Est GFR (MDRD) Non-Af 103 BUN/Creatinine Ratio 16.8 Glucose 93 Calcium 9.5 Troponin I High Sens 4 Radiography Diagnostic Testing: Clinical Impression(s) from Imaging Studies Chest X-Ray 01/23/21 21:50 IMPRESSION: No acute abnormal cardiopulmonary finding. Electronically Signed: Matt Thomas MD at 22:07 EDT Tel , Service support , EKG Initial EKG: Attestation: I personally reviewed and interpreted this EKG as follows: Interpretation: Sinus Rhythm and No Acute Injury Pattern Comments: normal EKG Prior: No Prior Discharge Plan Triage Chief Complaint: Hypertension ED Provider: Roderick Melgoza Dx/Rx/DC Orders Clinical Impression: Chest pain, unspecified, Anxiety, Episode of hypertension Instructions: ED Chest Pain, Uncertain Cause Prescriptions: New hydroxyzine pamoate [hydroxyzine pamoate] 25 MG capsule 50 mg PO TID PRN PRN (Reason: Anxiety) Qty: 20 RF: 0 No Action [id number] acid [ Multi] 1 EACH tablet 1 ea PO DAILY RF: 0 labetalol 200 MG tablet 300 mg PO TID Qty: 90 RF: 1 Primary Care Provider: Robbie Navarrete Referrals: Robbie Navarrete MD [Primary Care Provider] - 3-5 Days Disposition Disposition: Home, Self Care
[2021-01-23 21:38] VITALS: O2SAT 98
[2021-01-23] MEDS: Mag Hydrox/Al Hydrox/Simeth 30 ML UDC PO (21:41)
[2021-01-23 21:42] LABS: Absolute Lymphocyte Count 4.09 X10^3/uL (0.83-4.51); Absolute Neutrophil Count 8.2 X10^3/uL (2.0-7.7); Basophil# 0.09 X10^3/uL; Basophil% 0.7 % (0-1); Eosinophil# 0.53 X10^3/uL; Eosinophils% 3.9 % (0-5); Hematocrit 42.1 % (37-47); Hemoglobin 13.6 g/dL (12.0-15.0); Lymphocyte # 4.09 X10^3/ul (0.83-4.51); Lymphocyte % 30.4 % (19-41); Mean Corp Hgb Conc 32.3 g/dL (32-36); Mean Corpuscular Hgb 26.1 pg (27.0-32.0); Mean Corpuscular Volume 80.8 fL (81-99); Mean Platelet Vol. 10.3 fl (6.2-12.0); Monocyte# 0.58 X10^3/uL; Monocyte% 4.3 % (0-10); NRBC Flagged by Analyzer 0 % (0-5); Neutrophil # 8.15 X10^3/uL (2.7-7.7); Neutrophil % 60.6 % (47-70); Platelet Count 519 K/mm3 (150-450); RBC Distribution Width CV 13.7 % (11.6-14.6); RBC Distribution Width SD 40.4 fl (35.1-43.9); Red Blood Count 5.21 M/mm3 (4.2-5.4); White Blood Count 13.5 K/mm3 (4.4-11.0)
--- NOTE | 2021-01-23 21:50 | RAD_ITS ---
STUDY: X-RAY CHEST REASON FOR EXAM: Female, 30 years old. Chest pain TECHNIQUE: Portable, upright, AP chest radiograph COMPARISON: None. FINDINGS: The lungs are clear and expanded. There is no demonstrated pleural abnormality. Normal size heart. Normal mediastinum and danette. Normal visualized pulmonary arteries. Normal visualized aortic arch and descending thoracic aorta. Normal visualized thoracic spine. Normal visualized ribs, clavicles, and shoulders. There is no demonstrated abnormality of the visualized soft tissue structures of the upper abdomen. RAD/Chest 1 View (Portable) IMPRESSION: No acute abnormal cardiopulmonary finding. Electronically Signed: Matt Thomas MD at 22:07 EDT Tel , Service support ,
[2021-01-23 22:00] VITALS: BP 138/102; PULSE 97; RESP 18; O2SAT 99
[2021-01-23 22:05] LABS: Anion Gap 7 (5-15); BUN 12 mg/dL (7-18); BUN/Creat Ratio 16.8 RATIO (10-20); Calcium,Total 9.5 mg/dL (8.5-10.1); Chloride 105 mmol/L (98-107); Creatinine, Serum 0.71 mg/dL (0.55-1.02); EST Glomerular Filtration Rate 103 mL/min (>60); Est Glom Filt Rate - Afr Amer 125 mL/min (>60); Glucose 93 mg/dL (74-106); Potassium 3.6 mmol/L (3.5-5.1); Sodium Level 139 mmol/L (136-145); Troponin-I HS 4 pg/mL (3.0-54.0)
[2021-01-23] MEDS: hydrOXYzine PAM 25 MG Capsule 50 MG PO (22:51)
[2021-01-23 22:54] VITALS: BP 155/103; PULSE 82; RESP 16; O2SAT 100
== END 2021-01-23 22:55 | disposition home or self-care (01) ==
PROVIDERS: Emergency Provider Emergency Medicine; PCP Family Medicine
DX: R07.9 Chest pain, unspecified (principal); F41.9 Anxiety disorder, unspecified; I10 Essential (primary) hypertension
CPT/HCPCS: 71045; 80048; 84484; 85025; 93005; 99284; A4216